=== PATIENT | female | born 1975 | race Caucasian/White ===

== ENCOUNTER 2021-10-16 09:27 | Inpatient (IN) | payer OTHER ==
[2021-10-16 12:25] VITALS: BMI 40.3
[2021-10-16] MEDS ORDERED: Acetaminophen 325 MG TAB PO PRN (14:11)
[2021-10-16] MEDS ORDERED: hydrALAZINE 25 MG TAB PO PRN (14:17)
[2021-10-16] MEDS: Sodium Chloride 0.9% 1,000 ML IV SCH (16:21)
[2021-10-16] MEDS ORDERED: Lorazepam 2 MG/ML VIAL SLOW IVP PRN (18:35)
[2021-10-17] MEDS: Sodium Chloride 0.9% 1,000 ML IV SCH (04:30)
[2021-10-17] MEDS ORDERED: Enoxaparin Sodium 40 MG/0.4 ML SYRINGE SC SCH (09:00)
[2021-10-17 11:12] LABS: SARS-CoV-2 PCR by NAA Not Detected (NotDetected)
[2021-10-17 12:45] VITALS: BP 160/84; TEMP 98
== END 2021-10-17 12:15 | disposition home or self-care (01) | DRG 92 ==
LOC: 2NO 10:46
PROVIDERS: ADMIT Internal Medicine; ATTEND Internal Medicine
DX: G92.8 Other toxic encephalopathy (principal); N17.9 Acute kidney failure, unspecified; E87.2 Acidosis; I10 Essential (primary) hypertension; G89.29 Other chronic pain; Z20.822 Contact with and (suspected) exposure to COVID-19; F19.10 Other psychoactive substance abuse, uncomplicated; Z85.43 Personal history of malignant neoplasm of ovary; Z85.54 Personal history of malignant neoplasm of ureter; Z90.710 Acquired absence of both cervix and uterus; Z98.890 Other specified postprocedural states; Z79.899 Other long term (current) drug therapy
CPT/HCPCS: J7050; U0003; U0005